=== PATIENT | female | born 1990 | race American Indian/Alaskan Native ===

== ENCOUNTER 2019-12-05 12:50 | Observation (INO) | payer MEDICAID ==
--- NOTE | 2019-12-05 17:25 | Ultrasound Report ---
ULTRASOUND OBSTETRIC LIMITED ULTRASOUND BIOPHYSICAL PROFILE INDICATION / CLINICAL INFORMATION: non reassurring FHT. Clinical Gestational Age (GA): 38.0 weeks.days COMPARISON: None available. FINDINGS: BREATHING MOVEMENT = 2 GROSS BODY MOVEMENT = 2 TONE = 2 QUALITATIVE AMNIOTIC FLUID VOLUME = 2 TOTAL BIOPHYSICAL SCORE = 8/8 HEART RATE (beats per minute): 138 AMNIOTIC FLUID INDEX (cm) = 10.2 (normal = 7-24 cm) PRESENTATION: Breech. ADDITIONAL FINDINGS: None. IMPRESSION: 1. Biophysical Score = 8/8 2. Normal amniotic fluid index. Signer Name: To Corley MD Signed: 12/05/2019 5:20 PM Workstation Name: [id number]
[2019-12-05] MEDS: LACTATED RINGERS 1,000 ML IV SCH (20:22)
[2019-12-06] MEDS ORDERED: ACETAMINOPHEN 325 MG TAB PO PRN (12:02)
[2019-12-06] MEDS ORDERED: ePHEDrine SULFATE 50 MG/1 ML INJ IV PRN ×2 (12:02→20:29)
[2019-12-06] MEDS ORDERED: TERBUTALINE 1 MG/1 ML INJ SUB-Q PRN (12:02)
[2019-12-06] MEDS ORDERED: LIDOCAINE (2%) 20 MG/1 ML VIAL 20 ML MDV INFILTRATI ONE (12:02)
[2019-12-06] MEDS ORDERED: MINERAL OIL 30 ML ORAL LIQD PO PRN (12:02)
--- NOTE | 2019-12-06 12:34 | History and Physical Report ---
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 Past History Past Medical History: asthma, hematologic disorders (Hgb S-C) VISUAL MANAGER History: herpes Family/Genetic History: diabetes Social history: no significant social history, single, smoking (occ THC use) - Obstetrical History Expected Date of Delivery: 12/19/19 Actual Gestation: 38 Week(s) 1 Day(s) : 3 Para: 1 Hx # Term Pregnancies: 0 Number of Pregnancies: 1 Spontaneous Abortions: 1 Number of Living Children: 1 #1 Gender: Female year: 1,[birth year] Birthweight: 2.637 kg Method of Delivery: Vaginal Gestational age at delivery: 36 Medications and Allergies Allergies Allergy/AdvReac Type Severity Reaction Status Date / Time No Known Allergies Allergy Verified 12/05/19 12:59 Active Meds: Active Medications Acetaminophen (Tylenol) 650 mg PO Q4H PRN PRN Reason: Pain, Mild (1-3) Ephedrine Sulfate (Ephedrine Sulfate) 10 mg IV Q2M PRN PRN Reason: Hypotension Lactated Ringer's (Lactated Ringers) 1,000 mls @ 125 mls/hr IV DIRECT SHANNON Last Admin: 12/05/19 20:22 Dose: 125 mls/hr Documented by: Oxytocin/Sodium Chloride (Pitocin/Ns 30 Unit/500ml) 30 units in 500 mls @ 2 mls/hr IV TITR SHANNON; Protocol Lactated Ringer's (Lactated Ringers) 1,000 mls @ 125 mls/hr IV DIRECT SHANNON Oxytocin/Sodium Chloride (Pitocin/Ns 20 Unit/1000ml Drip) 20 units in 1,000 mls @ 125 mls/hr IV DIRECT SHANNON Mineral Oil (Mineral Oil) 30 ml PO QHS PRN PRN Reason: Constipation Terbutaline Sulfate (Brethine) 0.25 mg SUB-Q ONCE PRN PRN Reason: Hyperstimulation/Hypertonicity Review of Systems All systems: negative - Vital Signs Vital signs: Vital Signs Pulse Pulse Ox 89 98 12/05/19 12:55 12/05/19 12:55 Temp Pulse Resp BP Pulse Ox 98.0 F 75 18 122/58 98 12/06/19 07:47 12/06/19 07:48 12/06/19 07:47 12/06/19 07:47 12/06/19 07:48 - Physical Exam Breasts: Positive: normal Cardiovascular: Regular rate Lungs: Positive: Clear to auscultation, Normal air movement Abdomen: Positive: normal appearance, soft, normal bowel sounds Genitourinary (Female): Positive: normal external genitalia, normal perenium Vagina: Positive: normal moisture Uterus: Positive: enlarged Anus/Rectum: Positive: normal perianal skin Extremities: Positive: normal - Obstetrical FHR: category 1 Uterine Contraction Monitor Mode: External Cervical Dilatation: 0 Uterine Contraction Pattern: Irregular Uterine Tone Measurement Phase: Resting Uterine Contraction Intensity: Mild Results All other labs normal. Assessment and Plan A: IUP @ 38 1/7 Weeks Category I Tracing GBS Negative Breech Presentation P: Admit to L&D Per Routine Orders Consulted Dr. Molina: Dr Molina plans External Version
[2019-12-06 12:50] LABS: Hematocrit 23.8 % (30.3-42.9); Hemoglobin 8.5 gm/dl (10.1-14.3); Mean Corpuscular HGB Conc 36 % (30-34); Mean Corpuscular Volume 89 fl (79-97); Platelet Count 103 K/mm3 (140-440); Red Blood Count 2.66 M/mm3 (3.65-5.03)
[2019-12-06] MEDS ORDERED: OXYTOCIN DRIP 30 UNITS/500 ML BAG IV SCH (13:00)
[2019-12-06] MEDS ORDERED: LACTATED RINGERS 1,000 ML IV SCH (13:00)
[2019-12-06] MEDS ORDERED: OXYTOCIN 20 UNIT/1000ML DRIP 20 UNITS/1,000 ML BAG IV SCH (13:00)
[2019-12-06] MEDS: LACTATED RINGERS 1,000 ML IV SCH ×2 (19:05→20:35)
[2019-12-06] MEDS ORDERED: NALOXONE 2 MG/2 ML INJ IV PRN (20:29)
--- NOTE | 2019-12-06 20:29 | Anesthesia Consultation ---
Anesthesia Consult and Med Hx Date of service: 12/06/19 - Airway Anesthetic Teeth Evaluation: Good ROM Head & Neck: Adequate Mental/Hyoid Distance: Adequate Mallampati Class: Class II Intubation Access Assessment: Probably Good - Pulmonary Exam CTA: Yes - Cardiac Exam Cardiac Exam: RRR - Pre-Operative Health Status ASA Pre-Surgery Classification: ASA3 Proposed Anesthetic Plan: Epidural - Pulmonary Hx Smoking: Yes Hx Asthma: No - Cardiovascular System Hx Hypertension: No - Central Nervous System Hx Seizures: No Hx Psychiatric Problems: No - Endocrine Hx Renal Disease: No Hx Hypothyroidism: No Hx Hyperthyroidism: No - Hematic Hx Anemia: Yes Hx Sickle Cell Disease: Yes (trait) - Other Systems Hx Alcohol Use: No Hx Substance Use: Yes (marijuana)
--- NOTE | 2019-12-06 20:53 | Progress Note ---
Labor Epidural - Labor Epidural Start Time: 20:28 Stop Time: 20:45 Performed by:: RAMON CONROY Procedure: Patient is requesting epidural for labor pain. H&P, and labs reviewed. Procedure explained, questions answered, consent obtained. Patient in sitting position with blood pressure cuff and pulse ox on and working. Timeout performed immediately before start of procedure. Sterile betadine prep/drape. 3 mL 1% lidocaine skin wheal at L[3]-L[4]. 18-gauge Touhy epidural needle advanced to [id number] with saline at [7] cm. Epidural catheter advanced to [12] cm, negative aspiration for blood and csf, negative test dose 3 ml 1.5% lidocaine with epinephrine. Sterile steri-strips and tegaderm applied, followed by tape reinforcement. Patient tolerated procedure well. Day SRNA
[2019-12-06] MEDS ORDERED: fentaNYL-BUPIV 2 MCG/ML-0.125% 200 MCG/100 ML BAG EPIDURAL SCH (21:00)
[2019-12-06] MEDS ORDERED: LIDOCAINE MPF (2%) 20 MG/1 ML VIAL 5 ML ONE (21:02)
--- NOTE | 2019-12-06 21:47 | Procedure Note ---
Date of procedure: 12/06/19 Pre-op diagnosis: breech presentation Post-op diagnosis: same Procedure: External cephalic version, failed Epidural placed and terbutaline given. Patient consented and agreeable to proceed with the intended procedure. Rest and benefits discussed including indication for stat . Ultrasound in room. Head located at maternal right. trunk displaced superiorly out of pelvis while rotating the head in a counterclockwise fashion. The procedure continued periodically checking for head and heart tones. Patient began to spontaneously vomit resulting in the end of the procedure. Aborted cephalic version. Epidural turned off and patient monitored to allow the medications to wean. FHTs monitored for at least 2 hours afterwards. Plan for repeat at 39 weeks. Anesthesia: epidural Surgeon: TIANNA HENDERSON JR Estimated blood loss: none Pathology: none Condition: stable Disposition: same day
[2019-12-06 23:18] VITALS: BP 126/68
--- NOTE | 2019-12-06 23:52 | Discharge Summary ---
Providers - Providers Date of Admission: 12/05/19 13:25 Date of discharge: 12/06/19 Attending physician: RUEL SANDOVAL Primary care physician: RUEL SANDOVAL Hospitalization Reason for admission: observation, other (non-reactive NST in clinic) Procedure: other (attempted ECV) Procedure details: Admitted for attempted ECV after evaluated for non-reactive ECV. Normal ANTONIO and BPP. Found to be breech during assessment. Attempted and failed ECV. Hospital course: Normal ANTONIO and BPP. Breech presentation. Attempted and failed ECV. Follow up as outpatient for primary c/s for breech. Condition at discharge: Good Disposition: DC-01 TO HOME OR SELFCARE - Discharge Diagnoses (1) Breech presentat-unspec Status: Acute Plan - Provider Discharge Summary Additional instructions: [] Smoking cessation referral if applicable(refer to patient education folder for contact #) [] Refer to [facility] Booklet Call your doctor immediately for: * Fever > 100.5 * Heavy vaginal bleeding ( >1 pad per hour) * Severe persistent headache * Shortness of breath * Reddened, hot, painful area to leg or breast * Drainage or odor from incision. * Keep incision clean and dry at all times and follow doctor's instructions regarding bathing/showering - Follow up plan Follow up: RUEL SANDOVAL MD [Primary Care Provider] - 7 Days Forms: [facility] Discharge Summary
== END 2019-12-07 00:18 | disposition home or self-care (01) ==
LOC: APU 12:50 → TRG 12:50 → LD 13:25 → TRG 13:25
PROVIDERS: ADMIT Obstetrics & Gynecology; ATTEND Obstetrics & Gynecology
DX: O32.1XX0 Maternal care for breech presentation, not applicable or unspecified (principal); Z20.828 Contact with and (suspected) exposure to other viral communicable diseases; O99.013 Anemia complicating pregnancy, third trimester; D64.9 Anemia, unspecified; O99.113 Other diseases of the blood and blood-forming organs and certain disorders involving the immune mechanism complicating pregnancy, third trimester; D69.6 Thrombocytopenia, unspecified; O99.513 Diseases of the respiratory system complicating pregnancy, third trimester; J45.909 Unspecified asthma, uncomplicated; Z86.19 Personal history of other infectious and parasitic diseases; Z3A.38 38 weeks gestation of pregnancy
CPT/HCPCS: 36415; 59412; 76815; 76819; 85027; 86850; 86900; 86901; 96360; 96361; 96372; G0378; J3105; J7120; U0003